=== PATIENT | male | born 2000 | race Caucasian/White ===

== ENCOUNTER 2022-04-28 09:37 | Emergency (ER) | payer MEDICAID, SELFPAY ==
[2022-04-28 09:37] VITALS: BP 136/72; PULSE 104; RESP 16; TEMP 36.8; O2SAT 99; BMI 24.0
--- NOTE | 2022-04-28 09:50 | RAD_ITS ---
STUDY: X-RAY CHEST REASON FOR EXAM: Male, 21 years old. Cough TECHNIQUE: PA and lateral views of the chest. COMPARISON: None. FINDINGS: The lungs are clear and expanded. Scattered calcified granulomas. There is no demonstrated pleural abnormality. Normal size heart. Normal mediastinum and manuelito. Normal visualized pulmonary arteries. Normal visualized aortic arch and descending thoracic aorta. Normal visualized thoracic spine. Normal visualized ribs, clavicles, and shoulders. There is no demonstrated abnormality of the visualized soft tissue structures of the upper abdomen. RAD/Chest PA and Lateral IMPRESSION: Normal x-ray examination of the chest. Electronically Signed: Dejuan Coto MD at 10:43 EDT ,
--- NOTE | 2022-04-28 09:51 | EX.ED.DYSGE1 ---
HPI History of Present Illness Chief Complaint: Cough Informant: patient Narrative Narrative: 21-year-old male presenting with cough. Patient states this started on Thursday. He has had several coughing spells with posttussive emesis. Denies abdominal pain or diarrhea. Denies fever. Denies sick contacts. Denies chest pain or shortness of breath. Denies rhinorrhea, sore throat. He is not vaccinated for COVID. Prior similar symptoms: Yes Recent Illness/Hospitalization: No PFSH PFSH Medical History no medical history no medical history Home Medications benzonatate 100 mg capsule 100 mg PO TID PRN cough #20 caps 04/28/22 [Rx Last Taken Unknown] Social History Smoking Status: Current every day smoker tobacco type: cigarettes ROS ROS ED Constitutional Constitutional ED: Denies fever(s) Eyes Eyes: Denies change in vision ENT ENT ED: Denies rhinorrhea or sore throat Cardiovascular Cardiovascular: Denies chest pain or palpitations Respiratory/Chest Respiratory/Chest: Reports cough; Denies dyspnea Gastrointestinal Gastrointestinal: Reports vomiting; Denies abdominal pain, diarrhea or nausea Genitourinary Genitourinary ED: Denies dysuria Musculoskeletal Musculoskeletal: Denies myalgias Integumentary Denies rash Neurologic Neurologic: Denies headache(s) Psychiatric Psychiatric: Denies suicidal thoughts EXAM Physical Exam Const Vital Signs: 04/28/22 09:37 04/28/22 10:16 Temperature 98.3 F Temperature Source Temporal Pulse Rate 104 H Respiratory Rate 16 Respiratory Effort Normal Non-Labored Respiratory Depth Normal Respiratory Pattern Normal Blood Pressure 136/72 H Blood Pressure Mean 93 Pulse Ox 99 Oxygen Delivery Method Room Air Room Air Positive well nourished and well developed General Appearance ED: well developed HEENT Reports normocephalic, head/scalp atraumatic and moist mucous membranes HEENT Narrative: No pharyngeal erythema. No exudate. Uvula midline. Eyes PERRL and EOMs intact bilaterally Neck supple Neck Narrative: No meningismus General: Negative for tenderness Chest Wall inspection of chest normal Resp normal respiratory effort and clear to auscultation bilaterally Cardio regular rate and regular rhythm GI non-tender and non-distended Palpation: soft; Negative for guarding or rebound tenderness present no CVA tenderness Extremity normal to inspection Neuro oriented x3 Sensorium / Orientation: alert Psych mental status grossly normal Skin no rashes or lesions noted MDM MDM MDM Narrative Medical decision making narrative: COVID-negative. Influenza A positive. Chest x-ray two-view read by myself and radiology shows no acute process. Pulse ox 99% on room air. Patient was given prescription for Tessalon Perles. Advised to follow-up with primary care physician. Advised return to ED for worsening complaints. Lab Data Attestation: I reviewed the patient's lab results. Radiography Chest X-Ray - ED: 2 View, Read by ED Physician and Read by Radiologist Diagnostic Testing: Clinical Impression(s) from Imaging Studies Chest X-Ray 04/28/22 09:50 IMPRESSION: Normal x-ray examination of the chest. Electronically Signed: Dejuan Coto MD at 10:43 EDT , Discharge Plan Triage Chief Complaint: Cough ED Provider: Maru Valencia Dx/Rx/DC Orders Clinical Impression: Influenza A Instructions: ED Influenza (Adult) Prescriptions: New benzonatate 100 mg capsule 100 mg PO TID PRN (Reason: cough) Qty: 20 0RF Primary Care Provider: Care Physician,No Primary Referrals: NOT,DEFINED [Non-Staff] - Disposition Disposition: Home, Self Care
== END 2022-04-28 11:12 | disposition home or self-care (01) ==
PROVIDERS: Emergency Provider Emergency Medicine; Visit Provider Emergency Medicine
DX: J10.1 Influenza due to other identified influenza virus with other respiratory manifestations (principal); F17.210 Nicotine dependence, cigarettes, uncomplicated; R11.10 Vomiting, unspecified; Z20.822 Contact with and (suspected) exposure to COVID-19; Z28.310 Unvaccinated for COVID-19
CPT/HCPCS: 71046; 87428; 99282